=== PATIENT | female | born 1960 | race Caucasian/White ===

== ENCOUNTER 2024-10-11 04:08 | Day surgery (SDC) | payer OTHER ==
[2024-10-10 08:51] VITALS: BMI 29.7
[2024-10-11] MEDS ORDERED: LIDOCAINE HCL 1%, 10 MG/ML (20ML VIAL) ONE (07:30)
[2024-10-11] MEDS ORDERED: MIDAZOLAM HCL 2 MG/2 ML SINGLE DOSE VIAL ONE (07:48)
[2024-10-11] MEDS: ceFAZolin SODIUM 1 GM VIAL IVPB ONE (08:18)
[2024-10-11] MEDS: LIDOCAINE HCL 1%, 10 MG/ML (20ML VIAL) INF ONE (08:22)
[2024-10-11] MEDS ORDERED: PROPOFOL 60 ML ONE (08:33)
[2024-10-11] MEDS ORDERED: ceFAZolin SODIUM 1 GM VIAL ONE (08:58)
[2024-10-11 12:08] VITALS: RESP 20; TEMP 97.5
[2024-10-11 12:49] VITALS: BP 125/67; PULSE 58
== END 2024-10-11 12:45 | disposition home or self-care (01) ==
LOC: JASU-SURG 04:08
PROVIDERS: ATTEND Surgery
PROC: 0JH63WZ Insertion of Totally Implantable Vascular Access Device into Chest Subcutaneous Tissue and Fascia, Percutaneous Approach (ICD-10-PCS; principal; 2024-10-11 08:00)
DX: C50.919 Malignant neoplasm of unspecified site of unspecified female breast (principal)
CPT/HCPCS: 36561; C1788; 71045-TC-FY; 76000-TC-FY; 94760; C1751; J1644